=== PATIENT | female | born 1955 | race Caucasian/White ===

== ENCOUNTER 2025-03-11 10:03 | Outpatient (AMB) | payer MEDICARE, SELFPAY ==
--- OUTSIDE RECORDS SUMMARY | 2025-03-11 11:28 | XMS_ITS | Clinical Summary ---
Author Organization [facility] Facility Address [address] [address] Care Team Providers Care Aviation Safety Inspector Name Role Phone Jacob Alfaro MD Primary Care Provider [phone] Social History Tobacco Use Types Packs/Day Years Used Date Smoking Tobacco: Never Assessed Comments Unknown Sex and Gender Information Value Date Recorded Sex Assigned at Not on file Legal Sex Female 12:56 PM EDT Gender Identity Not on file Sexual Orientation Not on file Plan of Treatment Health Maintenance Due Date Last Done Comments Breast Cancer Screening 1955 Colorectal Cancer Screening: Annual FOBT 02/24/2004 Colorectal Cancer Screening: Colonoscopy 02/24/2004 Colorectal Cancer Screening: Sigmoidoscopy 02/24/2004 Pneumococcal Vaccine: 50+ Ye ars (1 of 1 - PCV) 2005 Influenza Vaccine (#1) 2025 Hepatitis B Vaccine Aged Out No longe r eligible based on patient's age to complete this topic Insurance Medicare Medicare Care Teams Aviation Safety Inspector Relationship Specialty Start Date End Date Jacob Alfaro MD [address] [address] JESSICA PATEL PCP - General Internal Medicine 03/10/21
== END 2025-03-11 13:14 | disposition home or self-care (01) ==
LOC: HO.HMGAL 10:03
PROVIDERS: PCP Obstetrics & Gynecology; Visit Provider Registered Nurse Emergency
DX: J30.89 Other allergic rhinitis (principal)
CPT/HCPCS: 95117; 95165

== ENCOUNTER 2025-04-05 09:48 | Outpatient (AMB) | payer MEDICARE, SELFPAY ==
--- OUTSIDE RECORDS SUMMARY | 2025-04-05 12:03 | XMS_ITS | Clinical Summary ---
Author Organization [facility] Facility Address [address] [address] Care Team Providers Care Molding Process Technician Name Role Phone Jacob Alfaro MD Primary Care Provider Social History Tobacco Use Types Packs/Day Years [...] this topic Insurance Medicare Medicare Care Teams Molding Process Technician Relationship Specialty Start Date End Date Jacob Alfaro MD [address] [place] [address] JESSICA PATEL PCP - General Internal Medicine 03/10/21
== END 2025-04-05 09:57 | disposition home or self-care (01) ==
LOC: HO.HMGAL 09:48
PROVIDERS: PCP Obstetrics & Gynecology; Visit Provider Registered Nurse Emergency
DX: J30.89 Other allergic rhinitis (principal)
CPT/HCPCS: 95117; 95165

== ENCOUNTER 2025-04-26 11:04 | Outpatient (AMB) | payer MEDICARE, OTHER, SELFPAY ==
--- OUTSIDE RECORDS SUMMARY | 2025-04-26 13:32 | XMS_ITS | Clinical Summary ---
Author Organization [facility] Facility Address [address] [address] Care Team Providers Care Emergency Care Attendant Name Role Phone Jacob Alfaro MD Primary Care Provider [phone] Social History Tobacco Use Types Packs/Day Years [...] this topic Insurance Medicare Medicare Care Teams Emergency Care Attendant Relationship Specialty Start Date End Date Jcaob Alfaro MD [address] [place] [address] JESSICA PATEL PCP - General Internal Medicine 03/10/21
--- OUTSIDE RECORDS SUMMARY | 2025-04-26 13:32 | XMS_ITS | Data Portability ---
Author Organization [place] [facility], Allergy Address [address] [place] [address] Care Team Providers Care Front Tender Name Role Phone KEESHA GASCA Primary Care Provider Assessment No assessment recorded. Plan of Treatment Reminders Order Date Submit Date Provider Last Modified By Organization Details Last Modified Time Details Appointments [facility]- Allergy f-up 6mon 2025 09:00A M LOCO Milian MD Not available Not available Not available Lab None recorded . Referral None recorded . Procedures None recorded . Surgeries None recorded . Imaging None recorded . Medication Orders None recorded . Patient TargetsNo targets recorded. Patient InstructionsNo instructions recorded. Reason for Referral None Reported. Problems Name Problem SNOMED Code Status Onset Date Resolution Date Notes Provider Name and Address Organization Details Recorded Time Allergic rhinitis caused by pollen 90474398 Active 2024 LOCO Milian MD [address] [place] [address], [phone], [place] [facility] 14:02:55 Mucocele of maxillary sinus 91432977250852 108 Active 2024 LOCO Milian MD [address] [place] [address], [phone], [place] [facility] 14:03:01 Problem Notes None recorded. Procedures Surgical History Date Name Laterality Status Provider Name and Address Organization Details Recorded Time 025 NasalEndoscopy_DP completed LOCO RAUSCH MD [address] [place] [address], [place], [address], [place] [facility] 04/16/2025 14:02:49 arthroscopy of wrist completed Sonya Ag CT - [facility] 04/16/2025 13:51:54 repair of musculotendinous cuff of shoulder completed Sonya Ag CT - [facility] 04/16/2025 13:52:07 extraction of cataract completed Sonya Ag CT - [facility] 04/16/2025 13:52:16 Imaging Results None recorded. Procedure Notes None recorded. Medical Equipment None Reported. Allergies No known drug allergies Medications Name Sig Start Date Stop Date Status Note LastModified by Organization Details LastModified Time amlodipine 5 mg tablet active Not Available Not Available No t Available Vitamin D3 active Not Available Not Av ailable Not Available Vitals Date Recorded Body height Body mass index (BMI) Body weight Provider Name and Address Organization Details Last Updated DateTime 04/16/2025 167.64 cm 30.7 kg/m2 [address]94.[address] - [facility] 04/16/2025 13:51:11 Social History None recorded. Functional Status None recorded. Mental Status None recorded. Family History Nothing Reported. Medical History Condition Response Hypertension Y Gynecological HistoryNo gynecological history recorded. Obstetrics History GPAL:G 0 P 0 0 0 0 Past Encounters Encounter ID Performer Location Encounter Start Date Encounter Closed Date Diagnosis/Indication Diagnosis SNOMED-CT Code Diagnosis ICD10 Code Diagnosis IMO Codes Diagnosis Note [id number] LOCO RAUSCH MD [facility] [address] [address] 04/16/2025 13:08:47 04/16/2025 14:01:55 Allergic rhinitis caused by pollen 50530652 J30.1 [id number] She was receiving immunother apy for 20 years. I recommend stopping immunother apy as she is fairly asymptomat ic at this time and likely does not require continued immunother apy. We will plan a follow-up in 6 months and if her symptoms recur we could consider retesting her. She was agreeable to this plan. Mucocele o f maxillary sinus [id number] 3281766 J34.1 [id number] I reviewed her imaging report from her MRI from 2005 which showed a left maxillary mucous retention cyst. Nasal endoscopy was negative for purulence and polyps. I recommend observatio n based on this finding as she has no current sinus complaints . Health Concerns Section Related Observation LastModified by Organization Detai ls LastModified Time None Recorded Concern Status LastModified by Organization Details LastModified Time None Recorded Advance Directives Directive None Recorded Payers Insurance Date Sequence Insurance Name Policy Number Policy Lizama Covered Member ID Lizama Member ID Guarantor Name 04/19/2025 1 MEDICARE B-[place]: [facility] [employer] Jessica Dardne [id number] 7 Jessica Darden 04/16/2025 2 [facility] Edilberto Monge Katalina [id number] PU Jessica Darden Notes Date Note Type Note Provider Name and Address Organization Details Recorded Time 04/16/2025 text/html ROS as noted in the HPI She used to see Dr. Griffin for allergies. 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 Has been receiving shots for 20 years (last shot a couple weeks ago). Hx of hearing loss and had a MRI IAC in 2004 which was negative for retrocochlear pathology but did show a left maxillary mucus retention cyst. Had allergy testing in 2005 which showed moderate allergies to most categories tested. LOCO RAUSCH MD [address] [place] [address], [phone], [facility] - [facility] 04/16/2025 14:04:12 OBGyn Episode No OBEpisode recorded.
== END 2025-04-26 11:09 | disposition home or self-care (01) ==
LOC: HO.HMGAL 11:04
PROVIDERS: PCP Nurse Practitioner Family; Visit Provider Registered Nurse Emergency
DX: J30.89 Other allergic rhinitis (principal)
CPT/HCPCS: 95117; 95165

== ENCOUNTER 2025-05-17 09:54 | Outpatient (AMB) | payer MEDICARE, OTHER, SELFPAY ==
--- OUTSIDE RECORDS SUMMARY | 2025-05-17 11:30 | XMS_ITS | Data Portability ---
Author Organization [place] [facility], Allergy Address [address] [place] [address] Care Team Providers Care Supply Chain Business Analyst Name Role Phone KEESHA GASCA Primary Care Provider Assessment No assessment recorded. Plan of Treatment Reminders Order Date Submit Date Provider Last Modified By Organization Details Last Modified Time Details Appointments [facility]- Allergy f-up 6mon 2025 09:00A M LOCO [...] Recorded Time Allergic rhinitis caused by pollen 91652628 Active 2024 LOCO Milian MD [address] [place] [address], [phone], [place] [facility] 14:02:55 Mucocele of maxillary sinus 15992552066204 108 Active 2024 LOCO Milian MD [address] [place] [address], [phone], [place] [facility] 14:03:01 Problem Notes None recorded. Procedures Surgical History Date Name Laterality Status Provider Name and Address Organization Details Recorded Time 025 NasalEndoscopy_DP completed LOCO RAUSCH MD [address] [place] [address], [place], [address], [place] [facility] 04/16/2025 14:02:49 arthroscopy of wrist completed Sonya Ag [place] - [facility] 04/16/2025 13:51:54 repair of musculotendinous cuff of shoulder completed Sonya Ag [place] - [facility] 04/16/2025 13:52:07 extraction of cataract completed Sonya Ag [place] - [facility] 04/16/2025 13:52:16 Imaging Results None recorded. [...] Updated DateTime 04/16/2025 167.64 cm 30.7 kg/m2 33393.55 g Sonya Ag [place] - [facility] 04/16/2025 13:51:11 Social History None recorded. Functional Status None recorded. Mental Status None recorded. Family History Nothing Reported. Medical History Condition Response Hypertension Y Gynecological HistoryNo gynecological history recorded. Obstetrics History GPAL:G 0 P 0 0 0 0 Past Encounters Encounter ID Performer Location Encounter Start Date Encounter Closed Date Diagnosis/Indication Diagnosis SNOMED-CT Code Diagnosis ICD10 Code Diagnosis IMO Codes Diagnosis Note [id number] LOCO RAUSCH MD [facility] [address] [address] 04/16/2025 13:08:47 04/16/2025 14:01:55 Allergic rhinitis caused by pollen 42471493 J30.1 [id number] She was receiving immunother apy for 20 years. I recommend stopping immunother apy as she is fairly asymptomat ic at this time and likely does not require continued immunother apy. We will plan a follow-up in 6 months and if her symptoms recur we could consider retesting her. She was agreeable to this plan. Mucocele o f maxillary sinus [id number] J34.1 [id number] I reviewed her imaging report from her [...] ID Guarantor Name 04/19/2025 1 MEDICARE B-[place]: [facility] [employer] Jessica Darden [id number] 7 Jessica Darden 04/16/2025 2 [facility]) Edilberto Monge Katalina [id number] PU Jessica Darden Notes Date Note Type [...] to most categories tested. LOCO RAUSCH MD [address] [place] [address], [phone], [facility] - [facility] 04/16/2025 14:04:12 OBGyn Episode No OBEpisode recorded.
--- OUTSIDE RECORDS SUMMARY | 2025-05-17 11:30 | XMS_ITS | Clinical Summary ---
Author Organization [facility] Facility Address [address] [address] Care Team Providers Care Human Relations Teacher Name Role Phone Jacob Alfaro MD Primary Care Provider [phone] Social History Tobacco Use Types Packs/Day Years [...] this topic Insurance Medicare Medicare Care Teams Human Relations Teacher Relationship Specialty Start Date End Date Jacob Alfaro MD [address] [place] [address] JESSICA PATEL PCP - General Internal Medicine 03/10/21
== END 2025-05-17 09:57 | disposition home or self-care (01) ==
LOC: HO.HMGAL 09:54
PROVIDERS: PCP Nurse Practitioner Family; Visit Provider Registered Nurse Emergency
DX: J30.89 Other allergic rhinitis (principal)
CPT/HCPCS: 95117; 95165

== ENCOUNTER 2025-06-07 10:26 | Outpatient (AMB) | payer MEDICARE, OTHER, SELFPAY ==
--- OUTSIDE RECORDS SUMMARY | 2025-06-07 21:31 | XMS_ITS | Continuity of Care Document ---
Author Organization [place] [facility], [facility] Address [address] [facility] [place] [address] Care Team Providers Care Music Critic Name Role Phone KEESHA GASCA Primary Care Provider [phone] Assessment No assessment recorded. Plan of Treatment Reminders Order Date Submit Date Provider Last Modified By Organization Details Last Modified Time Details Appointments [facility]- Allergy f-up 6mon 2025 09:00A M LOCO [...] Recorded Time Allergic rhinitis caused by pollen 10088462 Active 2024 LOCO Milian MD [address] [place] [address], [phone], [place] [facility] 14:02:55 Mucocele of maxillary sinus 91495500581626 108 Active 2024 LOCO Milian MD [address] [place] [address], [phone], [place] [facility] 14:03:01 Problem Notes None recorded. Procedures Surgical History Date Name Laterality Status Provider Name and Address Organization Details Recorded Time 025 NasalEndoscopy_DP completed LOCO RAUSCH MD [address] [place] [address], [phone], [place] [facility] 04/16/2025 14:02:49 arthroscopy of wrist completed Sonya Ag [place] - [facility] 04/16/2025 13:51:54 repair of musculotendinous cuff of shoulder completed Sonya Ag [place] - [facility] 04/16/2025 13:52:07 extraction of cataract completed omid Ag [place] - [facility] 04/16/2025 13:52:16 Imaging Results None recorded. [...] Updated DateTime 04/16/2025 167.64 cm 30.7 kg/m2 13304.55 g Sonya Ag [facility] 04/16/2025 13:51:11 Social History None recorded. Functional Status None recorded. Mental Status None recorded. Family History Nothing Reported. Medical History Condition Response Hypertension Y Gynecological HistoryNo gynecological history recorded. Obstetrics History GPAL:G 0 P 0 0 0 0 Past Encounters Encounter ID Performer Location Encounter Start Date Encounter Closed Date Diagnosis/Indication Diagnosis SNOMED-CT Code Diagnosis ICD10 Code Diagnosis IMO Codes Diagnosis Note [id number] LOCO RAUSCH MD [facility] [address] [address] 04/16/2025 13:08:47 04/16/2025 14:01:55 Allergic rhinitis caused by pollen 89765768 J30.1 [id number] She was receiving immunother apy for 20 years. I recommend stopping immunother apy as she is fairly asymptomat ic at this time and likely does not require continued immunother apy. We will plan a follow-up in 6 months and if her symptoms recur we could consider retesting her. She was agreeable to this plan. Mucocele o f maxillary sinus 3697219753 4883659 J34.1 [id number] I reviewed her imaging report from her [...] by Organization Details LastModified Time None Recorded Payers Encounter Date Sequence Insurance Name Policy Number Policy Lizama Covered Member ID Lizama Member ID Guarantor Name 04/16/2025 1 MEDICARE B-[place]: [facility] [employer] Jessica Darden [id number] 7 Jessica Darden 04/16/2025 2 [facility] Edilberto Monge Katalina [id number] PU Jessica Darden Notes Date Note Type [...] to most categories tested. LOCO RAUSCH MD [address] [place] [address], [phone], [facility] - [facility] 04/16/2025 14:04:12 OBGyn Episode No OBEpisode recorded.
--- OUTSIDE RECORDS SUMMARY | 2025-06-07 21:31 | XMS_ITS | Data Portability ---
Author Organization [place] [facility], Allergy Address [address] [place] [address] Care Team Providers Care Foxer Name Role Phone KEESHA GASCA Primary Care Provider Assessment No assessment recorded. Plan of Treatment Reminders Order Date Submit Date Provider Last Modified By Organization Details Last Modified Time Details Appointments [facility]- Allergy f-up 6mon 2025 09:00A M LOCO [...] Recorded Time Allergic rhinitis caused by pollen 26643623 Active 2024 LOCO Milian MD [address] [place] [address], [phone], [place] [facility] 14:02:55 Mucocele of maxillary sinus 83058739984510 108 Active 2024 LOCO Milian MD [address] [place] [address], [address], [place] [facility] 14:03:01 Problem Notes None recorded. Procedures Surgical History Date Name Laterality Status Provider Name and Address Organization Details Recorded Time 025 NasalEndoscopy_DP completed LOCO RAUSCH MD [address] [place] [address], [place], [address], [place] [facility] 04/16/2025 14:02:49 arthroscopy of wrist completed Sonya Ag [place] - [facility] 04/16/2025 13:51:54 repair of musculotendinous cuff of shoulder completed Sonya Ag [place] - [facility] 04/16/2025 13:52:07 extraction of cataract completed Sonya Ag [place] - [facility] 04/16/2025 13:52:16 Imaging Results None recorded. Procedure [...] Updated DateTime 04/16/2025 167.64 cm 30.7 kg/m2 13586.55 g Sonya Ag [place] - [facility] 04/16/2025 13:51:11 Social History None recorded. Functional Status None recorded. Mental Status None recorded. Family History Nothing Reported. Medical History Condition Response Hypertension Y Gynecological HistoryNo gynecological history recorded. Obstetrics History GPAL:G 0 P 0 0 0 0 Past Encounters Encounter ID Performer Location Encounter Start Date Encounter Closed Date Diagnosis/Indication Diagnosis SNOMED-CT Code Diagnosis ICD10 Code Diagnosis IMO Codes Diagnosis Note [id number] LOCO RAUSCH MD [facility] [address] [address] 04/16/2025 13:08:47 04/16/2025 14:01:55 Allergic rhinitis caused by pollen 63833226 J30.1 [id number] She was receiving immunother apy for 20 years. I recommend stopping immunother apy as she is fairly asymptomat ic at this time and likely does not require continued immunother apy. We will plan a follow-up in 6 months and if her symptoms recur we could consider retesting her. She was agreeable to this plan. Mucocele o f maxillary sinus [id number] 9125414 J34.1 [id number] I reviewed her imaging report from her [...] ID Guarantor Name 04/19/2025 1 MEDICARE B-[place]: [facility] [employer] Jessica Darden [id number] 7 Jessica Darden 04/16/2025 2 [facility] Edilberto Monge Katalina [id number] PU Jessica Darden Notes Date Note Type [...] to most categories tested. LOCO RAUSCH MD [address] [place] [address], [address], [facility] - [facility] 04/16/2025 14:04:12 OBGyn Episode No OBEpisode recorded.
== END 2025-06-07 10:28 | disposition home or self-care (01) ==
LOC: HO.HMGAL 10:26
PROVIDERS: PCP Nurse Practitioner Family; Visit Provider Registered Nurse Emergency
DX: J30.89 Other allergic rhinitis (principal)
CPT/HCPCS: 95117; 95165

== ENCOUNTER 2025-06-28 09:47 | Outpatient (AMB) | payer MEDICARE, OTHER, SELFPAY | END 2025-06-28 09:48 | disposition home or self-care (01) | LOC: HO.HMGAL 09:47 | PROVIDERS: PCP Nurse Practitioner Family; Visit Provider Registered Nurse Emergency | DX: J30.89 Other allergic rhinitis (principal) | CPT/HCPCS: 95117; 95165 ==